=== PATIENT | male | born 1995 | race African-American/Black ===

== ENCOUNTER 2016-09-10 18:22 | Emergency (ER) | payer SELFPAY ==
[2016-09-10 18:27] VITALS: BP 141/80; BMI 42.7
--- NOTE | 2016-09-10 19:18 | DR.GENAD ---
HPI - PCP Primary Care Physician: sonia - HPI Comment HPI Comment: NO FEVER, NO DRAINAGE. PAIN GETTING WORSE. - Complaint/Symptoms Chief Complaint Doctors Comments: ABSCESS UNDER RIGHT AXILLA TIMES 2 DAYS. Chief Complaint:: swelling under pt right arm - Nurses notes reviewed Nurses Notes Review: Yes - Source History Provided: Patient - Mode of Arrival Mode of Arrival: Ambulatory - Timing Onset of Chief Complaint: 09/08/16 Came on: Suddenly - Duration Duration: Constant Duration: Days - Severity Severity: Moderate PMH - PMH Past Medical History: Yes Past Medical History: Asthma Past Surgical History: Yes Surgical History: Tonsillectomy - Family History History of Family Medical Conditions: Yes Family Medical History: Heart Failure, Hypertension - Social History Does patient currently use any type of tobacco product: No Have you used tobacco products in the last 12 months: No Type of Tobacco Use: None Does any household member use tobacco: No Alcohol Use: None Do you use any recreational Drugs:: No Lives With: Family Lives Where: Home - infectious screening In the last 2 months have you had wt loss of >10#?: NO Have you had fever, night sweats or hemotysis?: No Have you traveled outside the country in the last 6 months?: No Isolation: Standard ROS - Review of Systems Constitutional: No Symptoms Reported Eyes: No Symptoms Reported ENTM: No Symptoms Reported Respiratoy: No Symptoms Reported Cardiovascular: No Symptoms Reported Gastrointestinal/Abdominal: No Symptoms Reported Genitourinary: No Symptoms Reported Neurological: No Symptoms Reported Musculoskeletal: Other (RT AXILLA) Integumentary: Other (ABSCESS RT AXILLA.) Hematologic/Lymphatic: No Symptoms Reported Endocrine: No Symptoms Reported All Other Systems: Reviewed and Negative PE - Vital Signs Vitals: Temperature 98.5 F Pulse Rate 100 Respiratory Rate 18 Blood Pressure 141/80 O2 Sat by Pulse Oximetry 100 - General Limitations: No Limitations General Appearance: Alert - Head Head Exam: Normal Inspection - Eyes Eye exam: Normal Appearance - ENT ENT Exam: Normal External Ear Exam External Ear Exam: Normal External Inspection TM/Canal Exam: Bilateral Normal Nose Exam: Normal Nose Exam Mouth Exam: Normal Inspection Throat Exam: Normal Inspection - Neck Neck Exam: Normal Inspection - Chest Chest Inspection: Symmetric Chest Wall Rise - Respiratory Respiratory Exam: Normal Lung Sounds Bilat Respiratory Exam: Bilateral Clear to Auscultation - Cardiovascular Cardiovascular Exam: Regular Rate, Normal Rhythm, Normal Heart Sounds - Abdominal Exam Abdominal Exam: Normal Inspection - Extremities Extremities Exam: Tenderness (RIGHT AXILLAR WITH SWELLING AND TENDERNESS.) - Back Back Exam: Normal Inspection - Neurologic Neurological Exam: Alert, Oriented X3 - Psychiatric Psychiatric Exam: Normal Affect, Normal Mood - Skin Skin Exam: Normal Color MDM - Additional Information Additional Information Obtained From: Family - Differential Diagnosis Differential Diagnosis: ABCESS, CELLULITIS Course - Treatment Treatment: SEE ORDERS. - Reevaluation 1st: Improved (I&D DONE, FELLING BETTER.) - Education/Counseling Education/Counseling: Patient, Family, Education Educated On: Treatment, Diagnosis, Needs for Follow Up Procedures - Incision and Drainage Blade Size: 11 I & D Procedure: betadine prep, sterile dressing applied, gauze wick placed (1/ 4 INCH) - Diagnosis Discharge Problem: Abscess Cellulitis Qualifiers: Site of cellulitis: extremity Site of cellulitis of extremity: axilla Laterality: right Qualified Code(s): L03.111 - Cellulitis of right axilla - Discharge Plan Condition: Stable Prescriptions: Ibuprofen [Motrin Tab 800 mg] 800 mg PO Q8H PRN #20 tab PRN Reason: Pain/Inflammation Sulfamethoxazole-Trimethoprim [BACTRIM DS TAB 800/160 MG *] 1 tab PO BID #20 tab Tramadol HCl 50 mg PO TID #15 tablet - Follow ups/Referrals Follow ups/Referrals: GRAYSON VOSS [Primary Care Provider] - 3 days - Instructions Instructions: Abscess, Cellulitis Additional Instructions: RETURN TO ED IF WORSE.
[2016-09-10] MEDS ORDERED: XYLOCAINE 1 % (PLAIN) ONE (19:30)
[2016-09-10] MEDS ORDERED: TORADOL TAB PO ONE ×2 (20:01→20:30)
[2016-09-10] MEDS ORDERED: BACTRIM DS TAB PO ONE ×2 (20:01→20:30)
[2016-09-10] MEDS ORDERED: MOTRIN TAB 800 MG PO ONE ×2 (20:02→20:30)
== END 2016-09-10 20:51 | disposition home or self-care (01) ==
LOC: ER 18:22
DX: L02.411 Cutaneous abscess of right axilla (principal); L03.111 Cellulitis of right axilla; B96.4 Proteus (mirabilis) (morganii) as the cause of diseases classified elsewhere
CPT/HCPCS: 87070; 87077; 87186; 87205; 99282; J2001